=== PATIENT | female | born 1945 | race Caucasian/White ===

== ENCOUNTER 2018-10-04 07:04 | Day surgery (SDC) | payer MEDICARE, BC ==
[2018-10-04] VITALS (21 sets, daily range): BP systolic 112–181; BP diastolic 42–86
[~2018-10-04] VITALS: Ht 170.2 cm; Wt 97.8 kg
[2018-10-04] MEDS ORDERED: morphine 10mg/ml inj. IM PRN (07:30)
[2018-10-04] MEDS ORDERED: LIDOCAINE 4% (40MG/ML) topical solution 50ml **BRONCH ONLY MM ONE (07:30)
[2018-10-04] MEDS ORDERED: LIDOCAINE 4% (40MG/ML) topical solution 50ml **BRONCH ONLY TP ONE (07:35)
[2018-10-04] MEDS ORDERED: phenylephrine 1% Nasal spray (extra-strength) 15 ML bottle **bronch room NS ONE ×2 (07:35→07:41)
[2018-10-04] MEDS ORDERED: lidocaine 2% viscous 15 ML cup ***bronch room only MM ONE ×2 (07:35→07:40)
[2018-10-04] MEDS ORDERED: epiNEPHrine 1 MG/ML 1 ml ampule **BRONCH ONLY ONE (07:40)
[2018-10-04] MEDS ORDERED: LIDOCAINE 4% (40MG/ML) topical solution 50ml **BRONCH ONLY ONE (07:40)
[2018-10-04] MEDS ORDERED: MIDAZolam 5mg/5ml vial ONE (07:41)
[2018-10-04 07:56] LABS: BASOPHILS # (AUTO) 0.1 X10'3 (0-0.2); BASOPHILS % (AUTO) 0.6 % (0-1); EOSINOPHILS # (AUTO) 0.2 X10'3 (0-0.9); EOSINOPHILS % (AUTO) 2.1 % (0-6); HEMATOCRIT 37.8 % (35.0-45.0); HEMOGLOBIN 12.6 g/dl (12.0-16.0); LYMPHOCYTES # (AUTO) 1.8 X10'3 (1.1-4.8); LYMPHOCYTES % (AUTO) 20.7 % (21-51); MEAN CORPUSCULAR HEMOGLOBIN 30.7 PG (27.0-31.0); MEAN CORPUSCULAR HGB CONC 33.3 g/dL (33.0-36.5); MEAN CORPUSCULAR VOLUME 92.2 FL (78-98); MEAN PLATELET VOLUME 9.2 FL (7.4-10.4); MONOCYTES # (AUTO) 0.6 X10'3 (0-0.9); MONOCYTES % (AUTO) 6.4 % (2-12); NEUTROPHILS # (AUTO) 6.2 X10'3 (1.8-7.7); NEUTROPHILS % (AUTO) 70.2 % (42-75); PLATELET COUNT 227 X10'3 (140-440); RED CELL DISTRIBUTION WIDTH 13.5 % (11.5-14.5); WHITE BLOOD COUNT 8.9 X10'3 (4.5-11.0)
[2018-10-04] MEDS ORDERED: MIDAZolam 5mg/ml 2ml vial IV ONE (08:55)
== END 2018-10-04 11:50 | disposition home or self-care (01) ==
LOC: SSTAY O 07:04
PROVIDERS: ATTEND Internal Medicine Pulmonary Disease
DX: C34.2 Malignant neoplasm of middle lobe, bronchus or lung (principal); R05 Cough; Z87.891 Personal history of nicotine dependence; R53.1 Weakness; E11.9 Type 2 diabetes mellitus without complications; F32.9 Major depressive disorder, single episode, unspecified; M79.7 Fibromyalgia; Z91.81 History of falling; I50.89 Other heart failure; Z80.3 Family history of malignant neoplasm of breast; N28.9 Disorder of kidney and ureter, unspecified
CPT/HCPCS: 31622; 31629; 36415; 82378; 85025; 87070; 88341; J0171; J2250; J2270; 31628; 76499; 88108; 88173; 88305; 88342; 88360